=== PATIENT | female | born 1985 | race Caucasian/White ===

== ENCOUNTER 2018-06-02 20:11 | Emergency (ER) | payer SELFPAY ==
[~2018-06-02] VITALS: Ht 160 cm; Wt 65.8 kg
[2018-06-02 20:26] VITALS: Ht 160 cm; Wt 65.8 kg
[2018-06-03 01:56] VITALS: BP 102/63
== END 2018-06-03 01:56 | disposition home or self-care (01) ==
LOC: ED 20:11
DX: S91.312A Laceration without foreign body, left foot, initial encounter (principal); W25.XXXA Contact with sharp glass, initial encounter; Y93.89 Activity, other specified; Y92.89 Other specified places as the place of occurrence of the external cause; Y99.8 Other external cause status
CPT/HCPCS: 90715; J2001; Q0092

== ENCOUNTER 2018-06-04 09:13 | Emergency (ER) | payer SELFPAY ==
[~2018-06-04] VITALS: Ht 162.6 cm; Wt 54.4 kg
[2018-06-04 09:21] VITALS: BP 118/67; Ht 162.6 cm; Wt 54.4 kg
== END 2018-06-04 10:16 | disposition home or self-care (01) ==
LOC: ED 09:13
DX: L03.115 Cellulitis of right lower limb (principal); S91.311D Laceration without foreign body, right foot, subsequent encounter; X58.XXXD Exposure to other specified factors, subsequent encounter

== ENCOUNTER 2018-06-05 08:37 | Emergency (ER) | payer SELFPAY ==
[~2018-06-05] VITALS: Ht 162.6 cm; Wt 56.7 kg
[2018-06-05 08:42] VITALS: Ht 162.6 cm; Wt 56.7 kg
[2018-06-05 09:42] LABS: CALCIUM 8.9 mg/dL (8.5-10.1); CARBON DIOXIDE 28.1 mmol/L (21-32); CHLORIDE SERUM 104 mmol/L (98-107); CREATININE SERUM 0.6 mg/dL (0.6-1.0); GFR1 > 60 mL/min; GLUCOSE SERUM 99 mg/dL (74-106); POTASSIUM SERUM 4.4 mmol/L (3.5-5.1); SODIUM SERUM 139 mmol/L (136-145)
[2018-06-05 09:43] LABS: BASOPHIL % 0.4 % (0-2); PLATELET COUNT 146 x10^3mcL (130-400); RED CELL DISTRIBUTION WIDTH 13.3 % (11.5-14.5)
[2018-06-05 09:47] LABS: ALBUMIN 3.7 g/dL (3.4-5.0); ALKALINE PHOSPHATASE 58 U/L (46-116); ALT/SGPT 21 U/L (14-59); AST/SGOT 14 U/L (15-37); TOTAL PROTEIN, SERUM 7.5 g/dL (6.4-8.2)
[2018-06-05 12:26] VITALS: BP 115/62
== END 2018-06-05 12:26 | disposition home or self-care (01) ==
LOC: ED 08:37
PROVIDERS: Emergency Medicine
DX: L03.115 Cellulitis of right lower limb (principal); R60.0 Localized edema; S91.311D Laceration without foreign body, right foot, subsequent encounter; L08.9 Local infection of the skin and subcutaneous tissue, unspecified; W45.8XXD Other foreign body or object entering through skin, subsequent encounter
CPT/HCPCS: J0696; J1885; J2001; Q0092